=== PATIENT | male | born 1970 | race Caucasian/White ===

== ENCOUNTER 2017-02-07 18:33 | Observation (INO) | payer BC ==
[~2017-02-07] VITALS: Ht 180.3 cm; Wt 97.0 kg
[~2017-02-07 18:33] MED LIST: ALL DAY ALLERGY10 M1 PO; AMLODIPINE BESYL5 MG PO; ASPIR 8181 M1 PO; COLACE100 MG PO; DICYCLOMINE HCL20 MG PO; KRILL OIL500 MG PO; LOPRESSOR25 MG PO; MOTRIN800 MG PO; NUCYNTA50 MG PO; PRILOSEC OTC20 MG PO; PRILOSEC20 MG PO; ULTRAM50 MG PO; VITAMIN D32000 UNI1 PO
[2017-02-07 19:18] LABS: HEMATOCRIT 44.1 % (38.0-50.0); MCH 31.2 PG (29.0-34.0); MCHC 34.5 G/DL (30.0-36.0); MCV 90.6 FL (86-99); MEAN PLAT.VOLUME 9.3 uM^3 (9.0-12.4); PLATELET COUNT 189 K/uL (156-360); RBC DIS.WIDTH-CV 12.3 % (11.8-14.6); RBC DIS.WIDTH-SD 40.3 % (39-53); RED BLOOD COUNT 4.87 M/uL (4.00-5.50); WHITE BLOOD COUNT 8.3 K/uL (4.1-10.2)
[2017-02-07 19:26] LABS: CHLORIDE 108 mEq/L (99-109); POTASSIUM 4.2 mEq/L (3.7-5.4); SODIUM 142 mEq/L (136-147)
[2017-02-07 19:28] LABS: GLUCOSE 83 mg/dL (70-99)
[2017-02-07 19:29] LABS: ANION GAP 9 MEQ/L (2-14)
[2017-02-07 19:32] LABS: GFR ESTIMATE (CALCULATED) 53 mL/min/
[2017-02-07 19:33] LABS: UREA NITROGEN (BUN) 20 mg/dL (9-23)
[2017-02-07 19:39] LABS: TROP-I INTERPRETATION NEGATIVE; TROPONIN-I < 0.01 ng/mL (0.0-0.30)
[2017-02-07] MEDS ORDERED: PROAIR HFA8.5 GM IH (20:34)
[2017-02-07] MEDS ORDERED: PULMICORT FLE180 MCG IH (20:35)
[2017-02-07 21:42] VITALS: BP 119/66
[2017-02-07 23:01] LABS: INFLUENZA A VIRAL ANTIGEN NEGATIVE; INFLUENZA B VIRAL ANTIGEN NEGATIVE
[2017-02-07 23:50] VITALS: BP 109/63
[2017-02-08 02:22] LABS: TROP-I INTERPRETATION NEGATIVE; TROPONIN-I < 0.01 ng/mL (0.0-0.30)
[2017-02-08 04:19] VITALS: BP 103/53
[2017-02-08 07:33] LABS: HDL CHOLESTEROL 27 MG/DL (Desirable>=40); LDL CHOLESTEROL 82 mg/dL (Desirable<100); NON-HDL CHOLESTEROL 119 mg/dL (Desirable<160); TOTAL CHOLESTEROL 146 mg/dL (Desirable<200); TRIGLYCERIDES 183 MG/DL (Normal: <150)
[2017-02-08 07:45] LABS: TROP-I INTERPRETATION NEGATIVE; TROPONIN-I < 0.01 ng/mL (0.0-0.30)
[2017-02-08 08:38] VITALS: BP 113/61
[2017-02-08 09:06] LABS: ANION GAP 8 MEQ/L (2-14); CHLORIDE 109 MEQ/L (99-109); GFR ESTIMATE (CALCULATED) 58 mL/min/; GLUCOSE 99 mg/dL (70-99); SODIUM 141 MEQ/L (136-147); UREA NITROGEN (BUN) 18 mg/dL (9-23)
[2017-02-08 11:46] VITALS: BP 126/74
[2017-02-08 11:49] VITALS: BP 121/74
== END 2017-02-08 14:48 | disposition home or self-care (01) ==
LOC: EME 18:33 → EDOF 20:25 → 5WEST 20:25
PROVIDERS: Physician Assistant Medical
DX: R07.89 Other chest pain (principal); I25.10 Atherosclerotic heart disease of native coronary artery without angina pectoris; I25.2 Old myocardial infarction; I25.82 Chronic total occlusion of coronary artery; I12.9 Hypertensive chronic kidney disease with stage 1 through stage 4 chronic kidney disease, or unspecified chronic kidney disease; E78.5 Hyperlipidemia, unspecified; N18.3 Chronic kidney disease, stage 3 (moderate); Z79.82 Long term (current) use of aspirin; J06.9 Acute upper respiratory infection, unspecified
CPT/HCPCS: 71020; 80048; 80061; 84484; 85027; 87502; 93005; 99202; 99281; 99285; G0378; J7030

== ENCOUNTER 2017-06-22 18:32 | Emergency (ER) | payer BC ==
[~2017-06-22] VITALS: Ht 180.3 cm; Wt 10.5 kg
[~2017-06-22 18:32] MED LIST changes: +PROAIR HFA8.5 GM IH; +PULMICORT FLE180 MCG IH
[2017-06-22] MEDS ORDERED: EPIPEN ADU0.3 MG/0.3 IM (22:43)
[2017-06-22] MEDS ORDERED: PREDNISONE20 MG PO (22:43)
[2017-06-22] MEDS ORDERED: ZANTAC150 MG PO (22:43)
[2017-06-22] MEDS ORDERED: BENADRYL50 MG PO (22:43)
[2017-06-22 23:03] VITALS: BP 122/77
== END 2017-06-22 23:04 | disposition home or self-care (01) ==
LOC: EME 18:32
DX: T63.441A Toxic effect of venom of bees, accidental (unintentional), initial encounter (principal); Z91.030 Bee allergy status; E78.5 Hyperlipidemia, unspecified; I25.2 Old myocardial infarction
CPT/HCPCS: 99281; 99285; J1200; J2930; J7030; J7512; S0028

== ENCOUNTER 2017-08-15 06:13 | Emergency (ER) | payer BC ==
[~2017-08-15] VITALS: Ht 180.3 cm; Wt 97.8 kg
[~2017-08-15 06:13] MED LIST changes: +BENADRYL50 MG PO; +EPIPEN ADU0.3 MG/0.3 IM; +PREDNISONE20 MG PO; +ZANTAC150 MG PO
[2017-08-15 06:52] LABS: CHLORIDE 105 mEq/L (99-109); POTASSIUM 3.9 mEq/L (3.7-5.4); SODIUM 141 mEq/L (136-147)
[2017-08-15 06:54] LABS: GLUCOSE 135 mg/dL (70-99)
[2017-08-15 06:56] LABS: ANION GAP 13 MEQ/L (2-14); TOTAL BILIRUBIN 1.3 mg/dL (0.0-1.0)
[2017-08-15 06:58] LABS: ALKALINE PHOSPHATASE 98 IU/L (3-129); GFR ESTIMATE (CALCULATED) 53 mL/min/
[2017-08-15 06:59] LABS: UREA NITROGEN (BUN) 19 mg/dL (9-23)
[2017-08-15 07:02] LABS: LIPASE 40 U/L (1.0-51.0)
[2017-08-15 08:15] LABS: EOSINOPHIL (%) 0.3 % (0-5); HEMATOCRIT 44.6 % (38.0-50.0); IMMATURE GRANULOCYTE (%) 0.3 % (0.0-0.7); INSTRUMENT ABS NEUTROPHIL CT 8.9 K/uL; LYMPHOCYTE COUNT 1.4 K/uL (1.0-2.8); MCH 31.7 PG (29.0-34.0); MCV 90.7 FL (86-99); MEAN PLAT.VOLUME 10.3 uM^3 (9.0-12.4); MONOCYTE (%) 5.3 % (3-12); MONOCYTE COUNT 0.6 K/uL (0-0.8); NEUTROPHIL (%) 81.3 % (45-76); NEUTROPHIL COUNT 8.9 K/uL (1.8-6.4); PLATELET COUNT 244 K/uL (156-360); RBC DIS.WIDTH-CV 12.4 % (11.8-14.6); RBC DIS.WIDTH-SD 40.5 % (39-53); RED BLOOD COUNT 4.92 M/uL (4.00-5.50)
[2017-08-15] MEDS ORDERED: ZOFRAN4 MG PO (10:21)
[2017-08-15 10:37] VITALS: BP 106/70
== END 2017-08-15 10:38 | disposition home or self-care (01) ==
LOC: EME 06:13
PROVIDERS: Emergency Medicine
DX: R11.2 Nausea with vomiting, unspecified (principal); R79.89 Other specified abnormal findings of blood chemistry; E78.5 Hyperlipidemia, unspecified; J45.909 Unspecified asthma, uncomplicated; I25.2 Old myocardial infarction; Z79.82 Long term (current) use of aspirin
CPT/HCPCS: 74022; 76705; 80053; 83690; 85025; 99281; 99284; J2405; J7030

== ENCOUNTER 2017-12-07 19:58 | Emergency (ER) | payer BC ==
[~2017-12-07] VITALS: Ht 180.3 cm; Wt 98.0 kg
[~2017-12-07 19:58] MED LIST changes: +ZOFRAN4 MG PO
[2017-12-08 00:21] VITALS: BP 124/81
== END 2017-12-08 00:21 | disposition home or self-care (01) ==
LOC: EME 19:58
DX: S61.210A Laceration without foreign body of right index finger without damage to nail, initial encounter (principal); W26.0XXA Contact with knife, initial encounter; Y93.G1 Activity, food preparation and clean up; Z23 Encounter for immunization; Z88.8 Allergy status to other drugs, medicaments and biological substances
CPT/HCPCS: 99281; 99284